=== PATIENT | male | born 1995 | race African-American/Black ===

== ENCOUNTER 2017-02-19 03:12 | Emergency (ER) | payer BC ==
[~2017-02-19] VITALS: Ht 175.3 cm; Wt 63.5 kg
== END 2017-02-19 07:54 | disposition home or self-care (01) ==
LOC: ER 03:12
DX: M79.604 Pain in right leg (principal); M79.605 Pain in left leg; G80.9 Cerebral palsy, unspecified; V89.2XXA Person injured in unspecified motor-vehicle accident, traffic, initial encounter; Y93.89 Activity, other specified; Y92.89 Other specified places as the place of occurrence of the external cause; Y99.8 Other external cause status